=== PATIENT | male | born 1960 | race Caucasian/White ===

== ENCOUNTER → 2023-10-07 06:31 | Day surgery (SDC) | payer BC, SELFPAY ==
[2023-10-07 07:22] LABS: Glucose - Point of Care 97 mg/dl (70-99)
== END ==
LOC: GI 06:31
PROVIDERS: ATTENDING PHYSICIAN Specialist
DX: Z12.11 Encounter for screening for malignant neoplasm of colon (principal); K57.30 Diverticulosis of large intestine without perforation or abscess without bleeding; D12.3 Benign neoplasm of transverse colon; K63.5 Polyp of colon; Z98.0 Intestinal bypass and anastomosis status
CPT/HCPCS: 45385; 45380; 88305; 82962

== ENCOUNTER → 2024-02-27 15:51 | Outpatient (REF) | payer BC, SELFPAY | LOC: HWRCS 15:51 | PROVIDERS: ATTENDING PHYSICIAN Internal Medicine Cardiovascular Disease; FAMILY PHYSICIAN Family Medicine | DX: I77.810 Thoracic aortic ectasia (principal); I35.1 Nonrheumatic aortic (valve) insufficiency | CPT/HCPCS: 93306 ==

== ENCOUNTER → 2025-02-15 11:19 | Outpatient (REF) | payer BC, SELFPAY | LOC: HWRCS 11:19 | PROVIDERS: ATTENDING PHYSICIAN Internal Medicine Cardiovascular Disease; FAMILY PHYSICIAN Family Medicine | DX: I77.810 Thoracic aortic ectasia (principal); I35.1 Nonrheumatic aortic (valve) insufficiency | CPT/HCPCS: 93306 ==